=== PATIENT | female | born 1965 | race Caucasian/White ===

== ENCOUNTER 2019-02-25 18:02 | Emergency (ER) | payer MEDICAID ==
[2019-02-25 18:13] VITALS: BP 142/84; PULSE 86
[2019-02-25] MEDS ORDERED: Acetaminophen/oxyCODONE 325-5 MG Tab PO ONE (18:22)
--- NOTE | 2019-02-25 18:22 | EDM.PDOC ---
ED HPI GENERAL MEDICAL PROBLEM - General Chief Complaint: Chest Pain Stated Complaint: RT RIB PAIN Time Seen by Provider: 02/25/19 18:17 Source of Information: Reports: Patient, Family (spouse) History Limitations: Reports: Respiratory Distress - History of Present Illness INITIAL COMMENTS - FREE TEXT/NARRATIVE: 53-year-old female presents to the ED with severe right-sided mid axillary pain. She states she's been ill with a cough and cold for the last 10 days. She feels this is been slowly getting better. Sure appetite is returned. She did not have a high fever with illness. Everyone in the family seem to catch it however. She did have the body aches and mild headache suggestive of a mild form of influenza. She developed pleuritic right-sided chest pain last night which was worse this afternoon. This precipitated her to go to the walk-in clinic where she did have an x-ray done and was told that she had a mild patch of pneumonia right lower lobe and she was started on a Z-Ran. So given Mucinex to help clear secretions. Subsequently the pain has intensified 10 times worse and feels like when she had a pleural effusion on the right side. She states her cough is actually better than it was. Onset: Sudden Onset Date: 02/24/19 (First appreciated right sided mid axillary rib pain last evening which is progressively intensified over the last) Duration: Hour(s):, Getting Worse Location: Reports: Chest (8 midaxillary line tenderness particularly over ribs 8 and 9.) Quality: Reports: Sharp, Stabbing Severity: Severe (Is very sharp and stabbing eye pleuritic 10) Improves with: Reports: Rest Worsens with: Reports: Other, Movement Context: Reports: Other (Spontaneous occurrence after coughing for the last 10 days because of cough and cold symptoms.). Denies: Activity, Exercise, Lifting , Sick Contact, Trauma Associated Symptoms: Reports: Chest Pain (Right mid axillary chest pain which is strongly pleuritic.), Cough, cough w sputum, Shortness of Breath. 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.) Right Chest Pain Score (Numeric/FACES): 10 - Related Data Allergies Allergy/AdvReac Type Severity Reaction Status Date / Time No Known Allergies Allergy Verified 02/25/19 18:13 Home Meds: Home Meds Albuterol Sulfate [Proair Hfa] 1 puff INH DAILY 02/25/19 [History] Fluticasone/Vilanterol [Breo Ellipta 200-25 MCG Inhalation Kit] 1 puff INH DAILY 02/25/19 [History] oxyCODONE HCl/Acetaminophen [Percocet 5-325 mg Tablet] 1 - 2 each PO Q4H PRN # 24 tablet 02/25/19 [Rx] Past Medical History HEENT History: Reports: Impaired Vision Respiratory History: Reports: Asthma, Pneumonia, Recurrent, Other (See Below) Other Respiratory History: pulmonary effusion 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: Musculoskeletal History: Reports: Other (See Below) Other Musculoskeletal History: right leg fracture - Past Surgical History GI Surgical History: Reports: Appendectomy, Cholecystectomy Female Surgical History: Reports: Hysterectomy Other Female Surgeries/Procedures: Bladder uphold with pelvic mesh Other Endocrine Surgeries/Procedures: Removal of adrenal gland Social & Family History - Family History Family Medical History: Noncontributory - Tobacco Use Smoking Status *Q: Current Every Day Smoker Years of Tobacco use: 30 Packs/Tins Daily: 1 - Caffeine Use Caffeine Use: Reports: Coffee - Recreational Drug Use Recreational Drug Use: No - Living Situation & Occupation Living situation: Reports: Occupation: Employed ED ROS GENERAL - Review of Systems Review Of Systems: See Below Constitutional: Reports: Malaise, Weakness, Decreased Appetite. Denies: Fever, Chills, Fatigue, Weight Loss HEENT: Reports: No Symptoms (At this time but her appetite has been improving over the last week) Respiratory: Reports: Shortness of Breath, Pleuritic Chest Pain, Cough (Severe pleuritic chest pain right mid axillary line or particularly over ribs 8 and 9) . Denies: Wheezing Cardiovascular: Reports: Chest Pain ( off which she states is resolving with very minimal sputum production). Denies: Blood Pressure Problem ( pleuritic chest pain right mid axillary line. ), Claudication, Dyspnea on Exertion, Edema , Lightheadedness, Orthopnea, Palpitations Endocrine: Reports: Fatigue GI/Abdominal: Reports: No Symptoms : Reports: No Symptoms Musculoskeletal: Reports: No Symptoms Skin: Reports: No Symptoms Neurological: Reports: No Symptoms Psychiatric: Reports: No Symptoms ED EXAM, GENERAL - Physical Exam Exam: See Below Exam Limited By: No Limitations General Appearance: Alert, WD/WN, Moderate Distress, Other (Temperatures 36.8 heart rate is 86 and sinus respiratory rate is 22-24/m with O2 sats of only 94% on room air. BP is 142/84. She has received showing splinting respirations on the right side) Eye Exam: Bilateral Eye: Normal Inspection, PERRL Respiratory/Chest: Decreased Breath Sounds, Splinting (Blunting respirations on the right side), Other (Chest wall rashes identified to suggest shingles.). No : Normal Breath Sounds Cardiovascular: Normal Peripheral Pulses, Regular Rate, Rhythm, No Edema, No Gallop, No Murmur (He should is tender to palpation over ribs 7 and 8 and 9 in the midaxillary line. No subcutaneous emphysema or crepitus identified), No Rub GI/Abdominal: Normal Bowel Sounds, Soft, Non-Tender, No Organomegaly, No Mass, Pelvis Stable Back Exam: Normal Inspection, Full Range of Motion. No: CVA Tenderness (L), CVA Tenderness (R) Extremities: Normal Inspection, Normal Range of Motion, Non-Tender, No Pedal Edema Course - Vital Signs Last Recorded V/S: Last Vital Signs Temp 36.8 C 02/25/19 18:08 Pulse 86 02/25/19 18:08 Resp 22 H 02/25/19 18:08 BP 142/84 H 02/25/19 18:08 Pulse Ox 94 L 02/25/19 18:08 - Orders/Labs/Meds Orders: Active Orders 24 hr Category Date Time Status Peripheral IV Care [RC] . DIRECTED Care 02/25/19 18:25 Active Peripheral IV Insertion Adult [OM.PC] Stat Oth 02/25/19 18:25 Ordered Meds: Medications Discontinued Medications Generic Name Dose Route Start Last Admin Trade Name Jose PRN Reason Stop Dose Admin Iopamidol 100 ml 02/25/19 18:46 02/25/19 19:03 Isovue-370 (76%) IVPUSH 02/25/19 18:47 100 ml ONETIME ONE Administration Ketorolac Tromethamine 30 mg 02/25/19 19:30 Toradol IVPUSH ONETIME MONIKA Ondansetron HCl 4 mg 02/25/19 18:23 02/25/19 18:29 Zofran Odt PO 02/25/19 18:24 4 mg ONETIME ONE Administration Oxycodone/Acetaminophen 2 tab 02/25/19 18:22 02/25/19 18:28 Percocet 325-5 Mg PO 02/25/19 18:23 2 tab ONETIME ONE Administration Sodium Chloride 10 ml 02/25/19 18:24 02/25/19 19:03 Saline Flush FLUSH 10 ml ASDIRECTED PRN Administration Keep Vein Open - Radiology Interpretation Free Text/Narrative:: 43-year-old female presents to the ED with gradually worsening pleuritic chest pain on the right side. She reports that she's had a cough and cold for the last 10 days but felt that she was getting better. She had no real high fever and appetite is come back. She does have generalized myalgia and mild headache suggestive of a milder form of influenza such as parainfluenza. She at present has severe pleuritic chest pain on the right side and has severe splinting respirations. She has never had a pulmonary embolism and no DVD in the past. Attend the walk-in clinic today and had an x-ray done which was suggestive of a possible pneumonia right lower lobe. Abnormal way and partially of getting a hold of this x-ray as the clinic is now closed. Started on a Z-Ran and given Mucinex type cough syrup without any relief. She states that she was at the clinic the pain has intensified by over 10 times. She has severe splinting respirations and is unable take a full deep breath due to the severity of the pain. It seems to be very well localized to ribs 7 and 8 and 9 in the midaxillary line on the right side. No subcutaneous emphysema or crepitus identified. She reports she has had a previous pleural effusion on the right side for unknown reason. Since her O2 sats only 94 percent on room air decision made to CT her chest with IV contrast to make sure there is no pulmonary embolism or infarct. - Re-Assessments/Exams Free Text/Narrative Re-Assessment/Exam: 02/25/19 19:13 CT of the chest i.e. CT pulmonary angiogram is completed. Reveal any evidence of a pulmonary embolism. There is no sign of a pleural effusion or a pneumonia or infiltrate in the right lower lobe. The visualized ribs are completely normal on the right side as well with no obvious intercostal injuries it appears therefore that she has intercostal muscle spasm from coughing and has torn muscle in between the ribs. Note coincidental findings of the CDR low-density mass noted within the right adrenal gland so- called "coincidentalnoma" with a 4.2 centimeter mass in the right adrenal gland which is felt to represent an underlying adenoma. This is increased slightly in size from prior study which time it measured 3.2 cm in greatest dimension but is still felt to be benign given its negative Hounsfield unit measurements. Prior study showed a nodule within the right upper lobe of the lung which is not appreciated on this current study.. Treatment will be Percocet tabs 5/325 mg one or 2 every 4-6 hours for pain relief as needed which would also suppress her cough. Departure - Departure Time of Disposition: 19:35 Disposition: Home, Self-Care 01 Condition: Fair Clinical Impression: Acute chest wall pain, Pleurisy Intercostal muscle tear Qualifiers: Encounter type: initial encounter Qualified Code(s): S29.019A - Strain of muscle and tendon of unspecified wall of thorax, initial encounter - Discharge Information *PRESCRIPTION DRUG MONITORING PROGRAM REVIEWED*: Not Applicable *COPY OF PRESCRIPTION DRUG MONITORING REPORT IN PATIENT CARLIE: Not Applicable Prescriptions: oxyCODONE HCl/Acetaminophen [Percocet 5-325 mg Tablet] 1 - 2 each PO Q4H PRN # 24 tablet PRN Reason: pain relief. Instructions: Chest Wall Pain Referrals: Mike Abrams MD [Primary Care Provider] - Forms: ED Department Discharge Additional Instructions: Evaluation the emergency room today due to increasing sharp stabbing pleuritic chest pain on the right side. It seems to be localized very well to ribs #7,8 and 9 in the midaxillary line of your right chest wall. You have been suffering from a cough and cold for the last week which is slowly getting better however the cough is persisting . X-ray done at the clinic earlier today was suggestive of pneumonia were started on antibiotic Zithromax. Emanation in the ED revealed that your oxygen level was a little bit on the low side due to inability to take a deep breath due to splinting respirations on the right side. I could not appreciate any good air entry to the right lower lobe due to splinting. CT of the chest was therefore done with IV contrast to rule out any blood clots in the lungs or injury to the lung itself. The CT turned out to revealed no signs of blood clot in the lung and no pleural effusion or evidence of pneumonia. Appears that current chest pain is coming from a tear of the muscle between the ribs: Intercostal muscle tear from cough. Bones themselves are ribs are intact with no sign of fracture. Treatment is therefore pain relief. Percocet tablets 5/325 mg one or 2 every 4-6 hours needed for pain relief. Expect things to settle down or return to normal in about 7-10 days. Limit your exercise and work until the intercostal muscle tear heals. Just using a stool softer such as MiraLAX powder 17 g once daily to prevent constipation from the pain pills. Just use of Aleve 2 tablets every 8 hours also to alleviate pain and inflammation in the chest wall. Was given to to excuse her from the workplace for the next 6 days until chest wall pain settles down. Follow-up with personal care provider of any further problem's occur. Sepsis Event Note - Evaluation Sepsis Screening Result: No Definite Risk - Focused Exam Date Exam was Performed: 02/26/19 Time Exam was Performed: 07:15 - My Orders Last 24 Hours: My Active Orders 02/25/19 18:25 Peripheral IV Care [RC] . DIRECTED Peripheral IV Insertion Adult [OM.PC] Stat - Assessment/Plan Last 24 Hours: My Active Orders 02/25/19 18:25 Peripheral IV Care [RC] . DIRECTED Peripheral IV Insertion Adult [OM.PC] Stat
[2019-02-25] MEDS ORDERED: Ondansetron 4 MG Tab.DIS PO ONE (18:23)
[2019-02-25] MEDS: Sodium Chloride 0.9% 10 ML Syringe FLUSH PRN ×2 (18:43→19:03)
[2019-02-25] MEDS ORDERED: Iopamidol 755 Mg/ML 100 ML Bottle IVPUSH ONE (18:46)
--- NOTE | 2019-02-25 19:26 | CT ---
CT chest Technique: Multiple axial sections through the chest were obtained. Intravenous contrast was utilized. Study has been performed as a pulmonary angiogram protocol. Comparison: Prior chest CT study of 01/21/16. Findings: Pulmonary arteries are well opacified. No filling defects are seen to indicate pulmonary embolism. Coronary artery calcification appears to be present. Mild atherosclerotic calcification is noted within the thoracic aorta. No aneurysm is seen. Mediastinum and hilar region show no adenopathy. No axillary adenopathy is seen. Low density mass is noted within the right adrenal gland showing negative Hounsfield unit measurements measuring 4.2 cm which is felt to represent an adrenal adenoma. This has slightly increased in size from prior study at which time it measured about 3.2 cm in greatest dimension but is still felt to be benign given its negative Hounsfield unit measurements. Lungs are clear. Prior study showed a nodule within the right upper lung which is not appreciated on current study and most likely result from previous exam. No acute parenchymal change is appreciated. No pleural effusions are seen. Bone window settings were reviewed which shows no acute osseous finding. Impression: 1. No findings of pulmonary embolism. 2. Nothing acute is appreciated on CT study of chest. 3. Other findings believed to be incidental as noted above. Diagnostic code #2 This report was dictated in [place] Standard Time
[2019-02-25] MEDS ORDERED: Ketorolac 30 MG/ML SDV IVPUSH SCH (19:30)
== END 2019-02-25 19:34 | disposition home or self-care (01) ==
LOC: JD.ED 18:02
DX: S29.011A Strain of muscle and tendon of front wall of thorax, initial encounter (principal); R09.1 Pleurisy; F17.210 Nicotine dependence, cigarettes, uncomplicated; Z90.49 Acquired absence of other specified parts of digestive tract; Z90.710 Acquired absence of both cervix and uterus; X50.9XXA Other and unspecified overexertion or strenuous movements or postures, initial encounter
CPT/HCPCS: 71275; 99283; A9270; Q9967; 99284

== ENCOUNTER 2019-04-15 14:35 | Inpatient (IN) | payer MEDICAID ==
[2019-04-15] MEDS ORDERED: Ondansetron 4 MG/2 ML SDV IVPUSH ONE ×2 (15:01→15:18)
[2019-04-15] MEDS ORDERED: Oseltamivir 75 MG Cap PO ONE (15:02)
--- NOTE | 2019-04-15 15:11 | EDM.PDOC ---
ED HPI GENERAL MEDICAL PROBLEM - General Chief Complaint: Respiratory Problem Stated Complaint: RESPIRATORY ISSUES Time Seen by Provider: 04/15/19 14:50 Source of Information: Reports: Patient History Limitations: Reports: No Limitations - History of Present Illness INITIAL COMMENTS - FREE TEXT/NARRATIVE: 53-year-old female presents to the ED at the request of her primary care provider Dr. Mathis after she presented to the walk-in clinic this morning with fever chills a paroxysmal cough and significant hypoxia. She proved to be influenza A positive. Her illness started evening April 13. She woke Wednesday morning the with headache, body aches, paroxysmal cough. She has lost her appetite completely and has not eaten much at all for 2 days. She has had associated diarrhea and nausea and vomiting. Is weak dizzy and lightheaded when standing. O2 sats at the clinic were around 88% and improved with oxygen at 2 L to 92%. Patient quit smoking 16 days ago. She has a 36-pack -year history. She states her cough is nonproductive. Was sent to the ED due to low O2 sats. Onset: Sudden Onset Date: 04/13/19 (In the evening of , April 13 she developed fever and chills.) Duration: Day(s):, Getting Worse Location: Reports: Chest (Shortness of breath weakness and inability to eat.) Quality: Reports: Other (There paroxysmal cough and her ribs are hurting quite badly from coughing so hard.) Severity: Moderate Improves with: Reports: None Worsens with: Reports: Other Context: Denies: Activity (Exertion), Exercise, Lifting, Sick Contact, Trauma, Other Associated Symptoms: Reports: Chest Pain, Cough, Fever/Chills, Headaches, Loss of Appetite, Malaise, Nausea/Vomiting, Shortness of Breath, Other (Area stools) . Denies: No Other Symptoms, Confusion (Lower rib pain bilaterally from coughing so much.), cough w sputum (There paroxysmal nonproductive cough), Diaphoresis Treatments CHHA: Reports: Acetaminophen, NSAIDS - Related Data Allergies Allergy/AdvReac Type Severity Reaction Status Date / Time No Known Allergies Allergy Verified 04/15/19 14:43 Home Meds: Home Meds Albuterol Sulfate [Proair Hfa] 1 puff INH DAILY 02/25/19 [History] Fluticasone/Vilanterol [Breo Ellipta 200-25 MCG Inhalation Kit] 1 puff INH DAILY 02/25/19 [History] Meclizine [Antivert] 25 mg PO DAILY 04/15/19 [History] Ondansetron [Zofran ODT] 4 mg SL ASDIRECTED PRN 04/15/19 [History] Past Medical History HEENT History: Reports: Impaired Vision Respiratory History: Reports: Asthma, Pneumonia, Recurrent, Other (See Below) Other Respiratory History: pulmonary effusion [employer] History: Reports: Musculoskeletal History: Reports: Other (See Below) Other Musculoskeletal History: right leg fracture - Past Surgical History GI Surgical History: Reports: Appendectomy, Cholecystectomy Female Surgical History: Reports: Hysterectomy Other Female Surgeries/Procedures: Bladder uphold with pelvic mesh Other Endocrine Surgeries/Procedures: Removal of adrenal gland Social & Family History - Family History Family Medical History: Noncontributory - Tobacco Use Smoking Status *Q: Current Every Day Smoker Years of Tobacco use: 35 Packs/Tins Daily: 0.5 - Caffeine Use Caffeine Use: Reports: Coffee - Recreational Drug Use Recreational Drug Use: No - Living Situation & Occupation Living situation: Reports: Occupation: Employed ED ROS GENERAL - Review of Systems Review Of Systems: See Below Constitutional: Reports: Fever, Chills, Malaise, Weakness, Fatigue, Decreased Appetite, Weight Loss HEENT: Reports: Throat Pain Respiratory: Reports: Shortness of Breath, Wheezing, Cough. Denies: Pleuritic Chest Pain (Occasional wheezing), Sputum (Paroxysmal cough), Hemoptysis Cardiovascular: Reports: Chest Pain (Upper chest pain from coughing so much lower rib pain from coughing so much), Dyspnea on Exertion, Lightheadedness. Denies: Blood Pressure Problem, Claudication, Edema, Orthopnea Endocrine: Reports: Fatigue GI/Abdominal: Reports: Diarrhea, Decreased Appetite, Nausea (3 loose stools in the last 48 hours), Vomiting (, Did once last evening) : Reports: Incontinence (Stress incontinence from coughing so hard) Musculoskeletal: Reports: Muscle Pain Skin: Reports: No Symptoms (Generalized myalgia) Neurological: Reports: Dizziness (Especially with standing.), Weakness ( Generalized weakness) Psychiatric: Reports: No Symptoms Hematologic/Lymphatic: Reports: No Symptoms Immunologic: Reports: No Symptoms ED EXAM, GENERAL - Physical Exam Exam: See Below Exam Limited By: No Limitations General Appearance: Alert, WD/WN, Mild Distress, Other (She is feeling somewhat better after receiving albuterol treatment at the clinic. She feels she can release taken a deeper breath without coughing so hard. Vital signs show temperature of 38.2 pulse 105 and sinus respiratory of 16 BP 03/01/1976 O2 sats 87% on room air.) Eye Exam: Bilateral Eye: Normal Inspection (No scleral icterus or blepharal pallor.) Ears: Normal TMs Throat/Mouth: Normal Inspection, Normal Lips, Normal Oropharynx Head: Atraumatic, Normocephalic Neck: Normal Inspection, Supple, Non-Tender, Full Range of Motion. No: Lymphadenopathy (L), Lymphadenopathy (R) Respiratory/Chest: Lungs Clear, Normal Breath Sounds, No Accessory Muscle Use, Decreased Breath Sounds. No: Rales, Rhonchi, Wheezing Cardiovascular: Normal Peripheral Pulses (Sounds are mildly decreased at both bases by about 20%), No Edema, No Gallop (Tachycardia at rest 105/min), No Murmur, No Rub, Tachycardia Peripheral Pulses: 2+: Posterior Tibial (L), Posterior Tibial (R), Dorsalis Pedis (L), Dorsalis Pedis (R) GI/Abdominal: Normal Bowel Sounds, Soft, Non-Tender, No Organomegaly, No Mass, Pelvis Stable Back Exam: Normal Inspection, Full Range of Motion. No: CVA Tenderness (L), CVA Tenderness (R) Extremities: Normal Inspection, Normal Range of Motion, Non-Tender Neurological: Alert, Oriented, CN II-XII Intact, Normal Cognition, Normal Gait Psychiatric: Normal Affect, Normal Mood Skin Exam: Warm, Dry, Intact, Normal Color, No Rash EKG INTERPRETATION EKG Date: 04/15/19 Time: 15:29 Rhythm: NSR Rate (Beats/Min): 98 [place]: LAD-Left [place] Deviation (Minimal left axis deviation at -9 degrees) P-Wave: Present QRS: Other (RSR prime wave V1 normal variant. Initial poor R wave progression.) ST-T: Other (During baseline.) EKG Interpretation Comments: Borderline ECG Course - Vital Signs Last Recorded V/S: Last Vital Signs Temp 38.2 C H 04/15/19 14:40 Pulse 105 H 04/15/19 14:40 Resp 16 04/15/19 14:40 BP 115/77 04/15/19 14:40 Pulse Ox 95 04/15/19 15:45 - Orders/Labs/Meds Orders: Active Orders 24 hr Category Date Time Status EKG Documentation Completion [RC] STAT Care 04/15/19 15:04 Active Oxygen Therapy [RC] ASDIRECTED Care 04/15/19 15:04 Active Oxygen Therapy [RC] ASDIRECTED Care 04/15/19 15:27 Active MAGNESIUM [CHEM] AM Lab 04/16/19 05:11 Ordered MAGNESIUM [CHEM] AM Lab 04/17/19 05:11 Ordered MAGNESIUM [CHEM] AM Lab 04/18/19 05:11 Ordered PRO B-TYPE NATRIUR PEPT,BNPPRO [CHEM] Stat Lab 04/15/19 15:20 Received URINALYSIS W/MICROSCOPIC [UA W/MICROSCOPIC] [URIN] Stat Lab 04/15/19 15:05 Ordered Dextrose 5%-0.9% NaCl [Dextrose 5%-Normal Saline] 1,000 Med 04/15/19 15:15 Active ml IV ASDIRECTED Ketorolac [Toradol] Med 04/15/19 15:30 Active 30 mg IVPUSH ONETIME Medication Orders Dextrose/Sodium Chloride (Dextrose 5%-Normal Saline) 1,000 mls @ 500 mls/hr IV ASDIRECTED MONIKA Last Admin: 04/15/19 15:21 Dose: 500 mls/hr Ketorolac Tromethamine (Toradol) 30 mg IVPUSH ONETIME MONIKA Last Admin: 04/15/19 15:32 Dose: 30 mg Labs: Laboratory Tests 04/15/19 04/15/19 04/15/19 Range/Units 15:20 15:20 15:20 WBC 3.96 L (3.98-10.04) K/mm3 RBC 4.81 (3.98-5.22) M/mm3 Hgb 14.6 (11.2-15.7) gm/dl Hct 46.2 H (34.1-44.9) % MCV 96.0 H D (79.4-94.8) fl MCH 30.4 (25.6-32.2) pg MCHC 31.6 L (32.2-35.5) g/dl RDW Std Deviation 50.0 H (36.4-46.3) fL Plt Count 178 L (182-369) K/mm3 MPV 10.9 (9.4-12.3) fl Neut % (Auto) 67.6 (34.0-71.1) % Lymph % (Auto) 20.7 (19.3-51.7) % [place] % (Auto) 10.4 (4.7-12.5) % Eos % (Auto) 0 L (0.7-5.8) Baso % (Auto) 0.5 (0.1-1.2) % Neut # (Auto) 2.68 (1.56-6.13) K/mm3 Lymph # (Auto) 0.82 L (1.18-3.74) K/mm3 [facility] # (Auto) 0.41 H (0.24-0.36) K/mm3 Eos # (Auto) 0.00 L (0.04-0.36) K/mm3 Baso # (Auto) 0.02 (0.01-0.08) K/mm3 Sodium 136 (136-145) mEq/L Potassium 3.4 L (3.5-5.1) mEq/L Chloride 99 (98-107) mEq/L Carbon Dioxide 25 (21-32) mEq/L Anion Gap 15.4 H (5-15) BUN 12 (7-18) mg/dL Creatinine 0.8 (0.55-1.02) mg/dL Est Cr Clr Drug Dosing 57.74 mL/min Estimated GFR (MDRD) > 60 (>60) mL/min BUN/Creatinine Ratio 15.0 (14-18) Glucose 90 (74-106) mg/dL Lactic Acid 0.5 (0.4-2.0) mmol/L Calcium 8.6 (8.5-10.1) mg/dL Total Bilirubin 0.3 (0.2-1.0) mg/dL AST 28 (15-37) U/L ALT 39 (14-59) U/L Alkaline Phosphatase 70 (46-116) U/L C-Reactive Protein (<1.0) mg/dL Total Protein 7.0 (6.4-8.2) g/dl Albumin 3.2 L (3.4-5.0) g/dl Globulin 3.8 gm/dL Albumin/Globulin Ratio 0.8 L (1-2) Ketones (0.0-0.3) mM 04/15/19 04/15/19 Range/Units 15:20 15:20 WBC (3.98-10.04) K/mm3 RBC (3.98-5.22) M/mm3 Hgb (11.2-15.7) gm/dl Hct (34.1-44.9) % MCV (79.4-94.8) fl MCH (25.6-32.2) pg MCHC (32.2-35.5) g/dl RDW Std Deviation (36.4-46.3) fL Plt Count (182-369) K/mm3 MPV (9.4-12.3) fl Neut % (Auto) (34.0-71.1) % Lymph % (Auto) (19.3-51.7) % [place] % (Auto) (4.7-12.5) % Eos % (Auto) (0.7-5.8) Baso % (Auto) (0.1-1.2) % Neut # (Auto) (1.56-6.13) K/mm3 Lymph # (Auto) (1.18-3.74) K/mm3 [facility] # (Auto) (0.24-0.36) K/mm3 Eos # (Auto) (0.04-0.36) K/mm3 Baso # (Auto) (0.01-0.08) K/mm3 Sodium (136-145) mEq/L Potassium (3.5-5.1) mEq/L Chloride (98-107) mEq/L Carbon Dioxide (21-32) mEq/L Anion Gap (5-15) BUN (7-18) mg/dL Creatinine (0.55-1.02) mg/dL Est Cr Clr Drug Dosing mL/min Estimated GFR (MDRD) (>60) mL/min BUN/Creatinine Ratio (14-18) Glucose (74-106) mg/dL Lactic Acid (0.4-2.0) mmol/L Calcium (8.5-10.1) mg/dL Total Bilirubin (0.2-1.0) mg/dL AST (15-37) U/L ALT (14-59) U/L Alkaline Phosphatase (46-116) U/L C-Reactive Protein 4.4 H* (<1.0) mg/dL Total Protein (6.4-8.2) g/dl Albumin (3.4-5.0) g/dl Globulin gm/dL Albumin/Globulin Ratio (1-2) Ketones 0.76 (0.0-0.3) mM Meds: Medications Generic Name Dose Route Start Last Admin Trade Name Freq PRN Reason Stop Dose Admin Dextrose/Sodium Chloride 1,000 mls @ 500 mls/hr 04/15/19 15:15 04/15/19 15:21 Dextrose 5%-Normal Saline IV 500 mls/hr ASDIRECTED MONIKA Administration Ketorolac Tromethamine 30 mg 04/15/19 15:30 04/15/19 15:32 Toradol IVPUSH 30 mg ONETIME MONIKA Administration Discontinued Medications Generic Name Dose Route Start Last Admin Trade Name Freq PRN Reason Stop Dose Admin Acetaminophen 650 mg 04/15/19 15:17 04/15/19 15:31 Tylenol PO 04/15/19 15:18 650 mg ONETIME ONE Administration Hydromorphone HCl 0.5 mg 04/15/19 15:18 04/15/19 15:30 Dilaudid IVPUSH 04/15/19 15:19 0.5 mg ONETIME ONE Administration Ondansetron HCl 4 mg 04/15/19 15:01 04/15/19 15:21 Zofran IVPUSH 04/15/19 15:02 4 mg ONETIME ONE Administration Ondansetron HCl 4 mg 04/15/19 15:18 04/15/19 15:32 Zofran IVPUSH 04/15/19 15:19 Not Given ONETIME ONE Oseltamivir Phosphate 75 mg 04/15/19 15:02 04/15/19 15:21 Tamiflu PO 04/15/19 15:03 75 mg ONETIME ONE Administration - Radiology Interpretation Free Text/Narrative:: 53-year-old female presents to the ED due to hypoxemia identified at the walk- in clinic. She became acutely ill on evening late with fever and chills. The following morning or yesterday she awoke with fever chills headache and paroxysmal cough and loss of appetite. She is also had nausea and vomiting x3 and diarrhea stools x3. She tested positive for the influenza A virus. Chest x-ray was done at the clinic and sent to us for review. There is slight haziness in the left lower lobe but not enough to call and pneumonia. Cardiac silhouette is within normal limits. She used to smoke cigarettes and quit 16 days ago. She has a [id number]-olra history. She is not on home oxygen. O2 sats here were 87% off of oxygen. On oxygen at 2 L she is 93%. Pressure is 115/73. She has a headache and is febrile at present. Plan routine labs to be done. She will likely require admission to the hospital due to hypoxemia. Point to start her on Tamiflu 75mg immediately as she is just about at the 48- hour window. - Re-Assessments/Exams Free Text/Narrative Re-Assessment/Exam: 04/15/19 16:11 Hematology reveals a white count that is on the low side at 3.96. The differential reveals 67% neutrophils and 21% lymphocytes. Hemoglobin is 14.6 with a hematocrit of 46.2. MCV is mildly elevated at 96.0. Platelet count is normal 178,000. Her lactic acid was 0.5 serum ketones are elevated at 0.76 04/15/19 16:42 Sodium is 136 potassium low normal at 3.4. Chloride 99 with a bicarb of 25. Anion gap is 15.4. BUN was 12 with a creatinine of 0.8. GFR was greater than 60. Glucose is 90 with a lactic acid of 0.5 calcium was 8.6 liver function was normal. C-reactive protein is elevated at 4.4. Total protein is 7.0 albumin fraction was 3.2 . Departure - Departure Time of Disposition: 16:43 Disposition: Admitted As Inpatient 65 Condition: Fair Clinical Impression: Influenza A, Hypoxia, Metabolic acidosis, Ketosis, Hypokalemia COPD (chronic obstructive pulmonary disease) Qualifiers: COPD type: unspecified COPD Qualified Code(s): J44.9 - Chronic obstructive pulmonary disease, unspecified - Discharge Information *PRESCRIPTION DRUG MONITORING PROGRAM REVIEWED*: Not Applicable *COPY OF PRESCRIPTION DRUG MONITORING REPORT IN PATIENT CARLIE: Not Applicable Sepsis Event Note - Evaluation Sepsis Screening Result: Possible Sepsis Risk - Focused Exam Vital Signs: Vital Signs Temp Pulse Resp BP Pulse Ox Pulse Ox 04/15/19 15:45 95 04/15/19 15:32 95 04/15/19 14:49 95 04/15/19 14:40 38.2 C H 105 H 16 115/77 87 L Date Exam was Performed: 04/15/19 Time Exam was Performed: 16:42 - My Orders Last 24 Hours: My Active Orders 04/15/19 15:04 EKG Documentation Completion [RC] STAT Oxygen Therapy [RC] ASDIRECTED 04/15/19 15:05 URINALYSIS W/MICROSCOPIC [UA W/MICROSCOPIC] [URIN] Stat 04/15/19 15:15 Dextrose 5%-0.9% NaCl [Dextrose 5%-Normal Saline] 1,000 ml IV ASDIRECTED 04/15/19 15:20 PRO B-TYPE NATRIUR PEPT,BNPPRO [CHEM] Stat 04/15/19 15:27 Oxygen Therapy [RC] ASDIRECTED 04/15/19 15:30 Ketorolac [Toradol] 30 mg IVPUSH ONETIME 04/16/19 05:11 MAGNESIUM [CHEM] AM 04/17/19 05:11 MAGNESIUM [CHEM] AM 04/18/19 05:11 MAGNESIUM [CHEM] AM - Assessment/Plan Last 24 Hours: My Active Orders 04/15/19 15:04 EKG Documentation Completion [RC] STAT Oxygen Therapy [RC] ASDIRECTED 04/15/19 15:05 URINALYSIS W/MICROSCOPIC [UA W/MICROSCOPIC] [URIN] Stat 04/15/19 15:15 Dextrose 5%-0.9% NaCl [Dextrose 5%-Normal Saline] 1,000 ml IV ASDIRECTED 04/15/19 15:20 PRO B-TYPE NATRIUR PEPT,BNPPRO [CHEM] Stat 04/15/19 15:27 Oxygen Therapy [RC] ASDIRECTED 04/15/19 15:30 Ketorolac [Toradol] 30 mg IVPUSH ONETIME 04/16/19 05:11 MAGNESIUM [CHEM] AM 04/17/19 05:11 MAGNESIUM [CHEM] AM 04/18/19 05:11 MAGNESIUM [CHEM] AM
[2019-04-15] MEDS ORDERED: Dextrose 5%-0.9% NaCl 1,000 ML IV SCH (15:15)
[2019-04-15] MEDS ORDERED: Acetaminophen 325 MG Tab PO ONE (15:17)
[2019-04-15] MEDS ORDERED: HYDROmorphone 0.5 MG/0.5 ML Syringe IVPUSH ONE (15:18)
[2019-04-15] MEDS ORDERED: Ketorolac 30 MG/ML SDV IVPUSH SCH (15:30)
[2019-04-15] MEDS ORDERED: Albuterol 0.083% 2.5 MG/3 ML Neb Soln NEB PRN (17:41)
[2019-04-15] MEDS ORDERED: Ondansetron 4 MG/2 ML SDV IV PRN (17:42)
[2019-04-15] MEDS ORDERED: Ibuprofen 600 MG Tab PO PRN ×2 (17:42→21:30)
[2019-04-15] MEDS ORDERED: Acetaminophen/oxyCODONE 325-5 MG Tab PO PRN (17:42)
--- NOTE | 2019-04-15 17:55 | PCM.HP.2 ---
H&P History of Present Illness - General Date of Service: 04/15/19 Admit Problem/Dx: Admission Diagnosis/Problem Admission Diagnosis/Problem Influenza due to influenza A subtype H1N1 virus Source of Information: Patient - History of Present Illness Initial Comments - Free Text/Narative: Being seen by her primary care provider secondary to hypoxemia and positive influenza A. Patient has a history of asthma and states that on she started developing nausea, vomiting, diarrhea, and worsening cough. Patient became more short of breath and was seen by her primary care provider today. She had a positive influenza swab and was found to be hypoxemic. Chest x-ray was negative for infection. WBC was normal at 5. She required 2 L by nasal cannula and her oxygen saturations were still only 91 to 92%. Patient did stop smoking approximately 16 days ago. She has a [id number] history. She states that her chest feels tight and she has a nonproductive cough. No other significant medical history. Headache Pain Score (Numeric/FACES): 4 - Related Data Allergies/Adverse Reactions: Allergies Allergy/AdvReac Type Severity Reaction Status Date / Time No Known Allergies Allergy Verified 04/15/19 14:43 Home Medications: Home Meds Albuterol Sulfate [Proair Hfa] 1 puff INH DAILY 02/25/19 [History] Fluticasone/Vilanterol [Breo Ellipta 200-25 MCG Inhalation Kit] 1 puff INH DAILY 02/25/19 [History] Meclizine [Antivert] 25 mg PO DAILY 04/15/19 [History] Ondansetron [Zofran ODT] 4 mg SL ASDIRECTED PRN 04/15/19 [History] Past Medical History HEENT History: Reports: Impaired Vision Respiratory History: Reports: Asthma, Pneumonia, Recurrent, Other (See Below) Other Respiratory History: pulmonary effusion 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: Musculoskeletal History: Reports: Other (See Below) Other Musculoskeletal History: right leg fracture - Past Surgical History GI Surgical History: Reports: Appendectomy, Cholecystectomy Female Surgical History: Reports: Hysterectomy Other Female Surgeries/Procedures: Bladder uphold with pelvic mesh Other Endocrine Surgeries/Procedures: Removal of adrenal gland Social & Family History - Family History Family Medical History: Noncontributory - Tobacco Use Smoking Status *Q: Current Every Day Smoker Years of Tobacco use: 35 Packs/Tins Daily: 0.5 - Caffeine Use Caffeine Use: Reports: Coffee - Recreational Drug Use Recreational Drug Use: No - Living Situation & Occupation Living situation: Reports: Occupation: Employed H&P Review of Systems - Review of Systems: Review Of Systems: Comprehensive ROS is negative, except as noted in HPI. Exam - Exam Exam: See Below - Vital Signs Vital Signs: Last Vital Signs Temp 100.8 F H 04/15/19 14:40 Pulse 95 04/15/19 16:44 Resp 16 04/15/19 16:44 BP 115/63 04/15/19 16:44 Pulse Ox 96 04/15/19 16:44 Weight: 190 lb - Exam Quality Assessment: Supplemental Oxygen General: Alert, Oriented, 4 HEENT: Conjunctiva Clear, Hearing Intact, Mucosa Moist & [place] Neck: Supple, Trachea Midline, 2 Lungs: Decreased Breath Sounds, Wheezing. No: Rhonchi Cardiovascular: Regular Rate, Regular Rhythm GI/Abdominal Exam: Normal Bowel Sounds, Soft, Non-Tender, No Organomegaly, No Distention, No Abnormal Bruit, No Mass Extremities: Normal Inspection, Normal Range of Motion, Non-Tender, No Pedal Edema Skin: Warm, Dry, Intact Neuro Extensive - Mental Status: Alert, Oriented x3 Neuro Extensive - Motor, Sensory, Reflexes: CN II-XII Intact Psychiatric: Alert, Normal Affect, Normal Mood - Patient Data Lab Results Last 24 hrs: Laboratory Results - last 24 hr 04/15/19 04/15/19 04/15/19 Range/Units 15:20 15:20 15:20 WBC 3.96 L (3.98-10.04) K/mm3 RBC 4.81 (3.98-5.22) M/mm3 Hgb 14.6 (11.2-15.7) gm/dl Hct 46.2 H (34.1-44.9) % MCV 96.0 H D (79.4-94.8) fl MCH 30.4 (25.6-32.2) pg MCHC 31.6 L (32.2-35.5) g/dl RDW Std Deviation 50.0 H (36.4-46.3) fL Plt Count 178 L (182-369) K/mm3 MPV 10.9 (9.4-12.3) fl Neut % (Auto) 67.6 (34.0-71.1) % Lymph % (Auto) 20.7 (19.3-51.7) % [place] % (Auto) 10.4 (4.7-12.5) % Eos % (Auto) 0 L (0.7-5.8) Baso % (Auto) 0.5 (0.1-1.2) % Neut # (Auto) 2.68 (1.56-6.13) K/mm3 Lymph # (Auto) 0.82 L (1.18-3.74) K/mm3 [place] # (Auto) 0.41 H (0.24-0.36) K/mm3 Eos # (Auto) 0.00 L (0.04-0.36) K/mm3 Baso # (Auto) 0.02 (0.01-0.08) K/mm3 Sodium 136 (136-145) mEq/L Potassium 3.4 L (3.5-5.1) mEq/L Chloride 99 (98-107) mEq/L Carbon Dioxide 25 (21-32) mEq/L Anion Gap 15.4 H (5-15) BUN 12 (7-18) mg/dL Creatinine 0.8 (0.55-1.02) mg/dL Est Cr Clr Drug Dosing 57.74 mL/min Estimated GFR (MDRD) > 60 (>60) mL/min BUN/Creatinine Ratio 15.0 (14-18) Glucose 90 (74-106) mg/dL Lactic Acid 0.5 (0.4-2.0) mmol/L Calcium 8.6 (8.5-10.1) mg/dL Total Bilirubin 0.3 (0.2-1.0) mg/dL AST 28 (15-37) U/L ALT 39 (14-59) U/L Alkaline Phosphatase 70 (46-116) U/L C-Reactive Protein (<1.0) mg/dL NT-Pro-B Natriuret Pep (0-125) pg/mL Total Protein 7.0 (6.4-8.2) g/dl Albumin 3.2 L (3.4-5.0) g/dl Globulin 3.8 gm/dL Albumin/Globulin Ratio 0.8 L (1-2) Ketones (0.0-0.3) mM 04/15/19 04/15/19 04/15/19 Range/Units 15:20 15:20 15:20 WBC (3.98-10.04) K/mm3 RBC (3.98-5.22) M/mm3 Hgb (11.2-15.7) gm/dl Hct (34.1-44.9) % MCV (79.4-94.8) fl MCH (25.6-32.2) pg MCHC (32.2-35.5) g/dl RDW Std Deviation (36.4-46.3) fL Plt Count (182-369) K/mm3 MPV (9.4-12.3) fl Neut % (Auto) (34.0-71.1) % Lymph % (Auto) (19.3-51.7) % [place] % (Auto) (4.7-12.5) % Eos % (Auto) (0.7-5.8) Baso % (Auto) (0.1-1.2) % Neut # (Auto) (1.56-6.13) K/mm3 Lymph # (Auto) (1.18-3.74) K/mm3 [place] # (Auto) (0.24-0.36) K/mm3 Eos # (Auto) (0.04-0.36) K/mm3 Baso # (Auto) (0.01-0.08) K/mm3 Sodium (136-145) mEq/L Potassium (3.5-5.1) mEq/L Chloride (98-107) mEq/L Carbon Dioxide (21-32) mEq/L Anion Gap (5-15) BUN (7-18) mg/dL Creatinine (0.55-1.02) mg/dL Est Cr Clr Drug Dosing mL/min Estimated GFR (MDRD) (>60) mL/min BUN/Creatinine Ratio (14-18) Glucose (74-106) mg/dL Lactic Acid (0.4-2.0) mmol/L Calcium (8.5-10.1) mg/dL Total Bilirubin (0.2-1.0) mg/dL AST (15-37) U/L ALT (14-59) U/L Alkaline Phosphatase (46-116) U/L C-Reactive Protein 4.4 H* (<1.0) mg/dL NT-Pro-B Natriuret Pep 67 (0-125) pg/mL Total Protein (6.4-8.2) g/dl Albumin (3.4-5.0) g/dl Globulin gm/dL Albumin/Globulin Ratio (1-2) Ketones 0.76 (0.0-0.3) mM Result Diagrams: 04/15/19 15:20 04/15/19 15:20 EKG INTERPRETATION EKG Date: 04/15/19 Rhythm: NSR [place]: Normal QRS: Normal (SR prime) ST-T: Normal QT: Normal Comparison: NA - No Prior EKG Sepsis Event Note - Evaluation Sepsis Screening Result: No Definite Risk - Focused Exam Vital Signs: Vital Signs Temp Pulse Resp BP Pulse Ox Pulse Ox 04/15/19 16:44 95 16 115/63 96 04/15/19 15:45 95 04/15/19 15:32 95 04/15/19 14:49 95 04/15/19 14:40 100.8 F H 105 H 16 115/77 87 L Date Exam was Performed: 04/15/19 Time Exam was Performed: 17:49 Problem List Initiated/Reviewed/Updated: Yes Orders Last 24hrs: Active Orders 24 hr Category Date Time Status Admission Status [Patient Status] [ADT] Routine ADT 04/15/19 15:58 Active EKG Documentation Completion [RC] STAT Care 04/15/19 15:04 Active Oxygen Therapy [RC] ASDIRECTED Care 04/15/19 15:04 Active Oxygen Therapy [RC] ASDIRECTED Care 04/15/19 15:27 Active Oxygen Therapy [RC] PRN Care 04/15/19 17:42 Ordered RT Aerosol Therapy [RC] ASDIRECTED Care 04/15/19 17:41 Ordered RT Incentive Spirometry [RC] ASDIRECTED Care 04/15/19 17:44 Ordered Up ad Sara [RC] ASDIRECTED Care 04/15/19 17:42 Ordered VTE/DVT Education [RC] PER UNIT ROUTINE Care 04/15/19 17:42 Ordered Vital Signs [RC] Q4H Care 04/15/19 17:42 Ordered Regular Diet [DIET] Diet 04/15/19 Dinner Ordered CBC WITH AUTO DIFF [HEME] AM Lab 04/16/19 05:11 Ordered COMPREHENSIVE METABOLIC PN,CMP [CHEM] AM Lab 04/16/19 05:11 Ordered MAGNESIUM [CHEM] AM Lab 04/16/19 05:11 Ordered MAGNESIUM [CHEM] AM Lab 04/17/19 05:11 Ordered MAGNESIUM [CHEM] AM Lab 04/18/19 05:11 Ordered URINALYSIS W/MICROSCOPIC [UA W/MICROSCOPIC] [URIN] Stat Lab 04/15/19 15:05 Ordered Acetaminophen/oxyCODONE [Percocet 325-5 MG] Med 04/15/19 17:42 Ordered 1 tab PO Q4H PRN Albuterol [Proventil Neb Soln] Med 04/15/19 17:41 Ordered 2.5 mg NEB Q2H PRN Albuterol/Ipratropium [DuoNeb 3.0-0.5 MG/3 ML] Med 04/15/19 21:00 Ordered 3 ml NEB Q6HRRT Amoxicillin/Clavulanate K [Augmentin 875 MG/125 MG] Med 04/15/19 21:00 Ordered 1 tab PO Q12HR Dextrose 5%-0.9% NaCl [Dextrose 5%-Normal Saline] 1,000 Med 04/15/19 15:15 Active ml IV ASDIRECTED Enoxaparin [Lovenox] Med 04/16/19 09:00 Ordered 40 mg SUBCUT DAILY Ibuprofen [Motrin] Med 04/15/19 21:30 Active 600 mg PO Q6H PRN Ketorolac [Toradol] Med 04/15/19 15:30 Active 30 mg IVPUSH ONETIME Ondansetron [Zofran] Med 04/15/19 17:42 Ordered 4 mg IV Q4H PRN Oseltamivir [Tamiflu] Med 04/16/19 06:00 Ordered 75 mg PO Q12H methylPREDNISolone Sod Succ [Solu-MEDROL] Med 04/15/19 17:45 Ordered 40 mg IVPUSH Q6H Resuscitation Status Routine Resus Stat 04/15/19 17:42 Ordered Medication Orders Albuterol (Proventil Neb Soln) 2.5 mg NEB Q2H PRN PRN Reason: Shortness of Breath Albuterol/Ipratropium (Duoneb 3.0-0.5 Mg/3 Ml) 3 ml NEB Q6HRRT MONIKA Amoxicillin/Clavulanate Potassium (Augmentin 875 Mg/125 Mg) 1 tab PO Q12HR MONIKA Enoxaparin Sodium (Lovenox) 40 mg SUBCUT DAILY [facility] Dextrose/Sodium Chloride (Dextrose 5%-Normal Saline) 1,000 mls @ 500 mls/hr IV ASDIRECTED [facility] Last Admin: 04/15/19 15:21 Dose: 500 mls/hr Ibuprofen (Motrin) 600 mg PO Q6H PRN PRN Reason: Pain (moderate 4-6) Ketorolac Tromethamine (Toradol) 30 mg IVPUSH ONETIME [facility] Last Admin: 04/15/19 15:32 Dose: 30 mg Methylprednisolone Sodium Succinate (Solu-Medrol) 40 mg IVPUSH Q6H [facility] Ondansetron HCl (Zofran) 4 mg IV Q4H PRN PRN Reason: Nausea/Vomiting Oseltamivir Phosphate (Tamiflu) 75 mg PO Q12H [place]IK[place] Oxycodone/Acetaminophen (Percocet 325-5 Mg) 1 tab PO Q4H PRN PRN Reason: Pain (moderate 4-6) Assessment/Plan Comment:: Assessment * Influenza A * Patient seen at primary care provider today and was positive for influenza A on nasal swab * Symptoms started approximately 48 hours ago. * With given Tamiflu 75 mg in the emergency room * Elevated anion gap * Exacerbation of asthma likely some component of COPD with hypoxemia * Requiring 2 to 4 L nasal cannula * Albuterol nebulizer has not made much of a difference. * She does have significant wheezing on exam and decreased air movement. * Chest x-ray is negative for infiltrate. * Dry cough. * Hypovolemia with hypokalemia * Given 1 L D5 NS in the emergency room Plan * Admit to medical floor * FiO2 to keep SPO2 between 92 to 95% * Continue Tamiflu 75 mg twice daily * D5 normal saline with 20 of K at 75 mL an hour * Potassium chloride 40 mEq p.o. x1 * Solu-Medrol 40 mg every 6 hours * Augmentin 875 mg twice daily * DuoNeb every 6 hours * Albuterol every 2 hours as needed * Repeat CBC, CMP and mag in the morning * Regular diet as tolerated * Zofran for nausea * VTE prophylaxis with Lovenox * CODE STATUS: Full code * Anticipated length of stay 2 to 3 days - Mortality Measure Prognosis:: Good
[2019-04-15] MEDS ORDERED: Potassium Chloride 20 MEQ Tab.ER PO ONE (17:57)
[2019-04-15] MEDS ORDERED: Dextrose 5%-0.9% NaCl with KCl 1,000 ML IV SCH (18:00)
[2019-04-15] MEDS: methylPREDNISolone Sodium Succinate 40 MG/1 ML SDV IVPUSH SCH ×2 (18:06→23:26)
[2019-04-15] MEDS: Albuterol/Ipratropium 3.0-0.5 MG/3 ML Neb Soln NEB SCH (21:13)
[2019-04-15] MEDS: Amoxicillin/Clavulanate K 875-125 MG Tab PO SCH (22:23)
[2019-04-16] MEDS: Albuterol/Ipratropium 3.0-0.5 MG/3 ML Neb Soln NEB SCH ×4 (03:21→21:56)
[2019-04-16] MEDS: methylPREDNISolone Sodium Succinate 40 MG/1 ML SDV IVPUSH SCH ×5 (06:10→23:38)
[2019-04-16] MEDS: Oseltamivir 75 MG Cap PO SCH ×2 (06:10→18:13)
[2019-04-16] MEDS: Pantoprazole 40 MG Tab.CR PO SCH (06:11)
[2019-04-16] MEDS: Amoxicillin/Clavulanate K 875-125 MG Tab PO SCH ×2 (10:10→20:36)
[2019-04-16] MEDS: Enoxaparin 40 MG/0.4 ML Syringe SUBCUT SCH (10:10)
--- NOTE | 2019-04-16 14:11 | PCM.PN ---
- General Info Date of Service: 04/16/19 Admission Dx/Problem (Free Text): Admission Diagnosis/Problem Admission Diagnosis/Problem Influenza due to influenza A subtype H1N1 virus Subjective Update: Patient states that she is feeling much better. Less short of breath and more energy. She has been walking the halls. Continues on 3 to 4 L of O2 via nasal cannula Functional Status: Reports: Pain Controlled - Review of Systems General: Reports: No Symptoms HEENT: Reports: No Symptoms Pulmonary: Reports: Shortness of Breath, Cough Cardiovascular: Reports: No Symptoms Gastrointestinal: Reports: No Symptoms Musculoskeletal: Reports: No Symptoms - Patient Data Vitals - Most Recent: Last Vital Signs Temp 98.2 F 04/16/19 10:13 Pulse 73 04/16/19 10:13 Resp 24 H 04/16/19 10:13 BP 114/70 04/16/19 10:13 Pulse Ox 94 L 04/16/19 10:13 Weight - Most Recent: 200 lb 1.6 oz I&O - Last 24 Hours: Intake & Output 04/15/19 04/16/19 04/16/19 22:59 06:59 14:59 Intake Total 300 1400 60 Output Total 400 Balance 300 1000 60 Lab Results Last 24 Hours: Laboratory Results - last 24 hr 04/15/19 04/15/19 04/15/19 Range/Units 15:20 15:20 15:20 WBC 3.96 L (3.98-10.04) K/mm3 RBC 4.81 (3.98-5.22) M/mm3 Hgb 14.6 (11.2-15.7) gm/dl Hct 46.2 H (34.1-44.9) % MCV 96.0 H D (79.4-94.8) fl MCH 30.4 (25.6-32.2) pg MCHC 31.6 L (32.2-35.5) g/dl RDW Std Deviation 50.0 H (36.4-46.3) fL Plt Count 178 L (182-369) K/mm3 MPV 10.9 (9.4-12.3) fl Neut % (Auto) 67.6 (34.0-71.1) % Lymph % (Auto) 20.7 (19.3-51.7) % [place] % (Auto) 10.4 (4.7-12.5) % Eos % (Auto) 0 L (0.7-5.8) Baso % (Auto) 0.5 (0.1-1.2) % Neut # (Auto) 2.68 (1.56-6.13) K/mm3 Lymph # (Auto) 0.82 L (1.18-3.74) K/mm3 [place] # (Auto) 0.41 H (0.24-0.36) K/mm3 Eos # (Auto) 0.00 L (0.04-0.36) K/mm3 Baso # (Auto) 0.02 (0.01-0.08) K/mm3 Manual Slide Review Sodium 136 (136-145) mEq/L Potassium 3.4 L (3.5-5.1) mEq/L Chloride 99 (98-107) mEq/L Carbon Dioxide 25 (21-32) mEq/L Anion Gap 15.4 H (5-15) BUN 12 (7-18) mg/dL Creatinine 0.8 (0.55-1.02) mg/dL Est Cr Clr Drug Dosing 57.74 mL/min Estimated GFR (MDRD) > 60 (>60) mL/min BUN/Creatinine Ratio 15.0 (14-18) Glucose 90 (74-106) mg/dL Lactic Acid 0.5 (0.4-2.0) mmol/L Calcium 8.6 (8.5-10.1) mg/dL Magnesium (1.8-2.4) mg/dl Total Bilirubin 0.3 (0.2-1.0) mg/dL AST 28 (15-37) U/L ALT 39 (14-59) U/L Alkaline Phosphatase 70 (46-116) U/L C-Reactive Protein (<1.0) mg/dL NT-Pro-B Natriuret Pep (0-125) pg/mL Total Protein 7.0 (6.4-8.2) g/dl Albumin 3.2 L (3.4-5.0) g/dl Globulin 3.8 gm/dL Albumin/Globulin Ratio 0.8 L (1-2) Urine Color (Yellow) Urine Appearance (Clear) Urine pH (5.0-8.0) Ur Specific [place] (1.005-1.030) Urine Protein (Negative) Urine Glucose (UA) (Negative) Urine Ketones (Negative) Urine Occult Blood (Negative) Urine Nitrite (Negative) Urine Bilirubin (Negative) Urine Urobilinogen (0.2-1.0) Ur Leukocyte Esterase (Negative) U Hyaline Cast (Auto) (0-5) /lpf Urine RBC (0-5) /hpf Urine WBC (0-5) /hpf Ur Squamous Epith Cells (0-5) /hpf Urine Bacteria (FEW) /hpf Urine Mucus (FEW) /hpf Ketones (0.0-0.3) mM 04/15/19 04/15/19 04/15/19 Range/Units 15:20 15:20 15:20 WBC (3.98-10.04) K/mm3 RBC (3.98-5.22) M/mm3 Hgb (11.2-15.7) gm/dl Hct (34.1-44.9) % MCV (79.4-94.8) fl MCH (25.6-32.2) pg MCHC (32.2-35.5) g/dl RDW Std Deviation (36.4-46.3) fL Plt Count (182-369) K/mm3 MPV (9.4-12.3) fl Neut % (Auto) (34.0-71.1) % Lymph % (Auto) (19.3-51.7) % [place] % (Auto) (4.7-12.5) % Eos % (Auto) (0.7-5.8) Baso % (Auto) (0.1-1.2) % Neut # (Auto) (1.56-6.13) K/mm3 Lymph # (Auto) (1.18-3.74) K/mm3 [place] # (Auto) (0.24-0.36) K/mm3 Eos # (Auto) (0.04-0.36) K/mm3 Baso # (Auto) (0.01-0.08) K/mm3 Manual Slide Review Sodium (136-145) mEq/L Potassium (3.5-5.1) mEq/L Chloride (98-107) mEq/L Carbon Dioxide (21-32) mEq/L Anion Gap (5-15) BUN (7-18) mg/dL Creatinine (0.55-1.02) mg/dL Est Cr Clr Drug Dosing mL/min Estimated GFR (MDRD) (>60) mL/min BUN/Creatinine Ratio (14-18) Glucose (74-106) mg/dL Lactic Acid (0.4-2.0) mmol/L Calcium (8.5-10.1) mg/dL Magnesium (1.8-2.4) mg/dl Total Bilirubin (0.2-1.0) mg/dL AST (15-37) U/L ALT (14-59) U/L Alkaline Phosphatase (46-116) U/L C-Reactive Protein 4.4 H* (<1.0) mg/dL NT-Pro-B Natriuret Pep 67 (0-125) pg/mL Total Protein (6.4-8.2) g/dl Albumin (3.4-5.0) g/dl Globulin gm/dL Albumin/Globulin Ratio (1-2) Urine Color (Yellow) Urine Appearance (Clear) Urine pH (5.0-8.0) Ur Specific [place] (1.005-1.030) Urine Protein (Negative) Urine Glucose (UA) (Negative) Urine Ketones (Negative) Urine Occult Blood (Negative) Urine Nitrite (Negative) Urine Bilirubin (Negative) Urine Urobilinogen (0.2-1.0) Ur Leukocyte Esterase (Negative) U Hyaline Cast (Auto) (0-5) /lpf Urine RBC (0-5) /hpf Urine WBC (0-5) /hpf Ur Squamous Epith Cells (0-5) /hpf Urine Bacteria (FEW) /hpf Urine Mucus (FEW) /hpf Ketones 0.76 (0.0-0.3) mM 04/15/19 04/16/19 04/16/19 Range/Units 22:02 06:41 06:41 WBC 2.43 L* (3.98-10.04) K/mm3 RBC 4.77 (3.98-5.22) M/mm3 Hgb 14.3 (11.2-15.7) gm/dl Hct 46.4 H (34.1-44.9) % MCV 97.3 H (79.4-94.8) fl MCH 30.0 (25.6-32.2) pg MCHC 30.8 L (32.2-35.5) g/dl RDW Std Deviation 50.5 H (36.4-46.3) fL Plt Count 180 L (182-369) K/mm3 MPV 11.0 (9.4-12.3) fl Neut % (Auto) 77.0 H (34.0-71.1) % Lymph % (Auto) 19.3 (19.3-51.7) % [place] % (Auto) 2.9 L (4.7-12.5) % Eos % (Auto) 0 L (0.7-5.8) Baso % (Auto) 0.4 (0.1-1.2) % Neut # (Auto) 1.87 (1.56-6.13) K/mm3 Lymph # (Auto) 0.47 L (1.18-3.74) K/mm3 [place] # (Auto) 0.07 L (0.24-0.36) K/mm3 Eos # (Auto) 0.00 L (0.04-0.36) K/mm3 Baso # (Auto) 0.01 (0.01-0.08) K/mm3 Manual Slide Review Abnormal smear Sodium 138 (136-145) mEq/L Potassium 4.7 (3.5-5.1) mEq/L Chloride 105 (98-107) mEq/L Carbon Dioxide 25 (21-32) mEq/L Anion Gap 12.7 (5-15) BUN 13 (7-18) mg/dL Creatinine 0.6 (0.55-1.02) mg/dL Est Cr Clr Drug Dosing 76.99 mL/min Estimated GFR (MDRD) > 60 (>60) mL/min BUN/Creatinine Ratio 21.7 H (14-18) Glucose 169 H (74-106) mg/dL Lactic Acid (0.4-2.0) mmol/L Calcium 8.4 L (8.5-10.1) mg/dL Magnesium 2.0 (1.8-2.4) mg/dl Total Bilirubin 0.2 (0.2-1.0) mg/dL AST 22 (15-37) U/L ALT 30 (14-59) U/L Alkaline Phosphatase 63 (46-116) U/L C-Reactive Protein (<1.0) mg/dL NT-Pro-B Natriuret Pep (0-125) pg/mL Total Protein 6.3 L (6.4-8.2) g/dl Albumin 2.8 L (3.4-5.0) g/dl Globulin 3.5 gm/dL Albumin/Globulin Ratio 0.8 L (1-2) Urine Color Yellow (Yellow) Urine Appearance Clear (Clear) Urine pH 6.0 (5.0-8.0) Ur Specific [place] 1.025 (1.005-1.030) Urine Protein Negative (Negative) Urine Glucose (UA) Negative (Negative) Urine Ketones Negative (Negative) Urine Occult Blood Negative (Negative) Urine Nitrite Negative (Negative) Urine Bilirubin Negative (Negative) Urine Urobilinogen 0.2 (0.2-1.0) Ur Leukocyte Esterase Trace H (Negative) U Hyaline Cast (Auto) 5-10 H (0-5) /lpf Urine RBC 0-5 (0-5) /hpf Urine WBC 5-10 H (0-5) /hpf Ur Squamous Epith Cells 0-5 (0-5) /hpf Urine Bacteria Moderate H (FEW) /hpf Urine Mucus Moderate H (FEW) /hpf Ketones (0.0-0.3) mM Med Orders - Current: Current Medications Albuterol (Proventil Neb Soln) 2.5 mg NEB Q2H PRN PRN Reason: Shortness of Breath Albuterol/Ipratropium (Duoneb 3.0-0.5 Mg/3 Ml) 3 ml NEB Q6HRRT [facility] Last Admin: 04/16/19 09:02 Dose: 3 ml Amoxicillin/Clavulanate Potassium (Augmentin 875 Mg/125 Mg) 1 tab PO Q12HR [facility] Last Admin: 04/16/19 10:10 Dose: 1 tab Enoxaparin Sodium (Lovenox) 40 mg SUBCUT DAILY [facility] Last Admin: 04/16/19 10:10 Dose: 40 mg Ibuprofen (Motrin) 600 mg PO Q6H PRN PRN Reason: Pain (moderate 4-6) Methylprednisolone Sodium Succinate (Solu-Medrol) 40 mg IVPUSH Q6H [facility] Last Admin: 04/16/19 10:33 Dose: 40 mg Ondansetron HCl (Zofran) 4 mg IV Q4H PRN PRN Reason: Nausea/Vomiting Oseltamivir Phosphate (Tamiflu) 75 mg PO Q12H [facility] Last Admin: 04/16/19 06:10 Dose: 75 mg Oxycodone/Acetaminophen (Percocet 325-5 Mg) 1 tab PO Q4H PRN PRN Reason: Pain (moderate 4-6) Pantoprazole Sodium (Protonix) 40 mg PO DAILY@0700 [facility] Last Admin: 04/16/19 06:11 Dose: 40 mg Discontinued Medications Acetaminophen (Tylenol) 650 mg PO ONETIME ONE Stop: 04/15/19 15:18 Last Admin: 04/15/19 15:31 Dose: 650 mg Hydromorphone HCl (Dilaudid) 0.5 mg IVPUSH ONETIME ONE Stop: 04/15/19 15:19 Last Admin: 04/15/19 15:30 Dose: 0.5 mg Dextrose/Sodium Chloride (Dextrose 5%-Normal Saline) 1,000 mls @ 500 [facility]ls[facility] Admin: 04/15/19 15:21 Dose: 500 mls/hr Potassium Chloride/Dextrose/Sod Cl (D5 Ns With 20 Meq Kcl) 1,000 mls @ 75 mls[facility] Last Admin: 04/15/19 18:09 Dose: 75 mls/hr Ibuprofen (Motrin) 600 mg PO Q6H PRN PRN Reason: Pain (moderate 4-6) Ketorolac Tromethamine (Toradol) 30 mg IVPUSH ONETIME [facility] Last Admin: 04/15/19 15:32 Dose: 30 mg Ondansetron HCl (Zofran) 4 mg IVPUSH ONETIME ONE Stop: 04/15/19 15:02 Last Admin: 04/15/19 15:21 Dose: 4 mg Ondansetron HCl (Zofran) 4 mg IVPUSH ONETIME ONE Stop: 04/15/19 15:19 Last Admin: 04/15/19 15:32 Dose: Not Given Oseltamivir Phosphate (Tamiflu) 75 mg PO ONETIME ONE Stop: 04/15/19 15:03 Last Admin: 04/15/19 15:21 Dose: 75 mg Potassium Chloride (Klor-Con M20) 40 meq PO ONETIME ONE Stop: 04/15/19 17:58 Last Admin: 04/15/19 18:07 Dose: 40 meq - Exam Quality Assessment: Supplemental Oxygen General: Alert, Oriented HEENT: Pupils Equal, Mucous Membr. Moist/[place] Neck: Supple Lungs: Normal Respiratory Effort, Wheezing (Improved) Cardiovascular: Regular Rate, Regular Rhythm GI/Abdominal Exam: Normal Bowel Sounds, Soft, Non-Tender, No Distention Extremities: Normal Inspection, Normal Range of Motion, Non-Tender, No Pedal Edema Skin: Warm, Dry, Intact Psy/Mental Status: Alert, Normal Affect, Normal Mood Sepsis Event Note - Evaluation Sepsis Screening Result: Sepsis Risk - Focused Exam Vital Signs: Vital Signs Temp Pulse Resp BP Pulse Ox Pulse Ox 04/16/19 10:13 98.2 F 73 24 H 114/70 94 L 04/16/19 09:04 98 04/16/19 03:26 98.2 F 67 16 121/89 99 04/16/19 03:21 93 L Date Exam was Performed: 04/16/19 Time Exam was Performed: 14:06 - Problem List Review Problem List Initiated/Reviewed/Updated: Yes - My Orders Last 24 Hours: My Active Orders 04/15/19 17:41 RT Aerosol Therapy [RC] .PRN Albuterol [Proventil Neb Soln] 2.5 mg NEB Q2H PRN 04/15/19 17:42 Oxygen Therapy [RC] PRN Up ad Sara [RC] DAILY VTE/DVT Education [RC] BID Vital Signs [RC] 00,04,08,12,16,20 Acetaminophen/oxyCODONE [Percocet 325-5 MG] 1 tab PO Q4H PRN Ondansetron [Zofran] 4 mg IV Q4H PRN Resuscitation Status Routine 04/15/19 17:44 RT Incentive Spirometry [RC] DAILY 04/15/19 17:45 methylPREDNISolone Sod Succ [Solu-MEDROL] 40 mg IVPUSH Q6H 04/15/19 21:00 Albuterol/Ipratropium [DuoNeb 3.0-0.5 MG/3 ML] 3 ml NEB Q6HRRT Amoxicillin/Clavulanate K [Augmentin 875 MG/125 MG] 1 tab PO Q12HR 04/15/19 21:30 Ibuprofen [Motrin] 600 mg PO Q6H PRN 04/15/19 Dinner Regular Diet [DIET] 04/16/19 06:00 Oseltamivir [Tamiflu] 75 mg PO Q12H 04/16/19 07:00 Pantoprazole [ProTONIX] 40 mg PO DAILY@0700 04/16/19 09:00 Enoxaparin [Lovenox] 40 mg SUBCUT DAILY 04/16/19 13:08 Patient Status [ADT] Routine - Plan Plan:: Assessment * Influenza A * Patient seen at primary care provider today and was positive for influenza A on nasal swab * Symptoms started approximately 48 hours prior to admission * Tamiflu 75 mg q12h * Elevated anion gap * Exacerbation of asthma likely some component of COPD with hypoxemia - improving * Requiring 2 to 4 L nasal cannula * Duoneb q6 hours * Improved exam * Chest x-ray is negative for infiltrate. * Dry cough. * Hypovolemia with hypokalemia * K+ 4.7 Plan * Admit to medical floor * FiO2 to keep SPO2 between 92 to 95% * Continue Tamiflu 75 mg twice daily * Solu-Medrol 40 mg every 6 hours * Augmentin 875 mg twice daily * DuoNeb every 6 hours * Albuterol every 2 hours as needed * Repeat CBC, CMP and mag in the morning * Regular diet as tolerated * Zofran for nausea * VTE prophylaxis with Lovenox * CODE STATUS: Full code * Anticipated length of stay 2 to 3 days
[2019-04-17] MEDS: Albuterol/Ipratropium 3.0-0.5 MG/3 ML Neb Soln NEB SCH ×2 (03:20→08:08)
[2019-04-17] MEDS: methylPREDNISolone Sodium Succinate 40 MG/1 ML SDV IVPUSH SCH (06:29)
[2019-04-17] MEDS: Pantoprazole 40 MG Tab.CR PO SCH (06:29)
[2019-04-17] MEDS: Oseltamivir 75 MG Cap PO SCH (06:29)
[2019-04-17] MEDS: Amoxicillin/Clavulanate K 875-125 MG Tab PO SCH (09:04)
[2019-04-17] MEDS: Enoxaparin 40 MG/0.4 ML Syringe SUBCUT SCH (09:04)
[2019-04-17 09:05] VITALS: BP 114/61
--- NOTE | 2019-04-17 09:44 | PCM.DCSUM1 ---
Discharge Summary - Hospital Course HPI Initial Comments: Being seen by her primary care provider secondary to hypoxemia and positive influenza A. Patient has a history of asthma and states that on she started developing nausea, vomiting, diarrhea, and worsening cough. Patient became more short of breath and was seen by her primary care provider today. She had a positive influenza swab and was found to be hypoxemic. Chest x-ray was negative for infection. WBC was normal at 5. She required 2 L by nasal cannula and her oxygen saturations were still only 91 to 92%. Patient did stop smoking approximately 16 days ago. She has a [id number] history. She states that her chest feels tight and she has a nonproductive cough. No other significant medical history. Diagnosis: Stroke: No - Discharge Data Discharge Date: 04/17/19 Discharge Disposition: Home, Self-Care 01 Condition: Stable - Referral to Home Health Primary Care Physician: PCP Not In Area - Patient Summary/Data Hospital Course: Patient was admitted with influenza A and exacerbation of COPD with hypoxemia. She was placed on Tamiflu, started on IV steroids, duo nebs, Augmentin and albuterol. She had uneventful hospital course and was weaned off of O2 within 48 hours. - Patient Instructions Diet: Usual Diet as Tolerated Driving: May Drive Today Showering/Bathing: May Shower Other/Special Instructions: Follow up with PCP in 1 - 2 weeks. - Discharge Plan *PRESCRIPTION DRUG MONITORING PROGRAM REVIEWED*: Not Applicable *COPY OF PRESCRIPTION DRUG MONITORING REPORT IN PATIENT CARLIE: Not Applicable Prescriptions/Med Rec: Amoxicillin/Clavulanate K [Augmentin 875-125 MG] 1 tab PO Q12HR #6 tablet Oseltamivir [Tamiflu] 75 mg PO Q12H #5 cap predniSONE [Prednisone] 50 mg PO DAILY #2 tablet Home Medications: Home Meds Albuterol Sulfate [Proair Hfa] 1 puff INH DAILY 02/25/19 [History] Fluticasone/Salmeterol [Advair 100-50] 1 puff INH BID 04/15/19 [History] Meclizine [Antivert] 25 mg PO DAILY 04/15/19 [History] Omeprazole 20 mg PO DAILY 04/15/19 [History] Ondansetron [Zofran ODT] 4 mg SL ASDIRECTED PRN 04/15/19 [History] Amoxicillin/Clavulanate K [Augmentin 875-125 MG] 1 tab PO Q12HR #6 tablet [Rx] Oseltamivir [Tamiflu] 75 mg PO Q12H #5 cap 04/17/19 [Rx] predniSONE [Prednisone] 50 mg PO DAILY #2 tablet 04/17/19 [Rx] Oxygen Therapy Mode: Room Air Patient Handouts: Chronic Obstructive Pulmonary Disease Exacerbation, H1N1 Influenza, Steps to Quit Smoking Referrals: Debbie Wilkins MD [Ordering Only Provider] - 04/21/19 4:15 pm (Please follow up with Dr. Wilkins on April 20 at 4:15pm.) - Discharge Summary/Plan Comment DC Time >30 min.: Yes Discharge Summary/Plan Comment: Follow-up with primary care provider in 1 to 2 weeks. - General Info Date of Service: 04/17/19 Admission Dx/Problem (Free Text: Admission Diagnosis/Problem Admission Diagnosis/Problem Influenza due to influenza A subtype H1N1 virus Subjective Update: She is feeling much better today. She is off of O2. No shortness of breath. - Review of Systems General: Reports: No Symptoms HEENT: Reports: No Symptoms Pulmonary: Reports: No Symptoms Cardiovascular: Reports: No Symptoms Gastrointestinal: Reports: No Symptoms Musculoskeletal: Reports: No Symptoms Skin: Reports: No Symptoms - Patient Data Vitals - Most Recent: Last Vital Signs Temp 97.9 F 04/17/19 09:03 Pulse 79 04/17/19 09:03 Resp 14 04/17/19 09:03 BP 114/61 04/17/19 09:03 Pulse Ox 91 L 04/17/19 09:03 Weight - Most Recent: 200 lb 14.4 oz I&O - Last 24 hours: Intake & Output 04/16/19 04/17/19 04/17/19 22:59 06:59 14:59 Intake Total 880 500 120 Output Total 800 1300 Balance 80 -800 120 Lab Results - Last 24 hrs: Laboratory Results - last 24 hr 04/17/19 Range/Units 06:15 WBC 10.69 H (3.98-10.04) K/mm3 RBC 4.68 (3.98-5.22) M/mm3 Hgb 14.2 (11.2-15.7) gm/dl Hct 45.5 H (34.1-44.9) % MCV 97.2 H (79.4-94.8) fl MCH 30.3 (25.6-32.2) pg MCHC 31.2 L (32.2-35.5) g/dl RDW Std Deviation 50.8 H (36.4-46.3) fL Plt Count 189 (182-369) K/mm3 MPV 11.3 (9.4-12.3) fl Neut % (Auto) 88.4 H (34.0-71.1) % Lymph % (Auto) 8.4 L (19.3-51.7) % [place] % (Auto) 2.7 L (4.7-12.5) % Eos % (Auto) 0 L (0.7-5.8) Baso % (Auto) 0.2 (0.1-1.2) % Neut # (Auto) 9.45 H (1.56-6.13) K/mm3 Lymph # (Auto) 0.90 L (1.18-3.74) K/mm3 [place] # (Auto) 0.29 (0.24-0.36) K/mm3 Eos # (Auto) 0.00 L (0.04-0.36) K/mm3 Baso # (Auto) 0.02 (0.01-0.08) K/mm3 Manual Slide Review Normal smear Med Orders - Current: Current Medications Albuterol (Proventil Neb Soln) 2.5 mg NEB Q2H PRN PRN Reason: Shortness of Breath Albuterol/Ipratropium (Duoneb 3.0-0.5 Mg/3 Ml) 3 ml NEB Q6HRRT [facility] Last Admin: 04/17/19 08:08 Dose: 3 ml Amoxicillin/Clavulanate Potassium (Augmentin 875 Mg/125 Mg) 1 tab PO Q12HR [facility] Last Admin: 04/17/19 09:04 Dose: 1 tab Enoxaparin Sodium (Lovenox) 40 mg SUBCUT DAILY [facility] Last Admin: 04/17/19 09:04 Dose: 40 mg Ibuprofen (Motrin) 600 mg PO Q6H PRN PRN Reason: Pain (moderate 4-6) Methylprednisolone Sodium Succinate (Solu-Medrol) 40 mg IVPUSH Q6H [facility] Last Admin: 04/17/19 06:29 Dose: 40 mg Ondansetron HCl (Zofran) 4 mg IV Q4H PRN PRN Reason: Nausea/Vomiting Oseltamivir Phosphate (Tamiflu) 75 mg PO Q12H [facility] Last Admin: 04/17/19 06:29 Dose: 75 mg Oxycodone/Acetaminophen (Percocet 325-5 Mg) 1 tab PO Q4H PRN PRN Reason: Pain (moderate 4-6) Pantoprazole Sodium (Protonix) 40 mg PO DAILY@0700 [facility] Last Admin: 04/17/19 06:29 Dose: 40 mg Discontinued Medications Acetaminophen (Tylenol) 650 mg PO ONETIME ONE Stop: 04/15/19 15:18 Last Admin: 04/15/19 15:31 Dose: 650 mg Hydromorphone HCl (Dilaudid) 0.5 mg IVPUSH ONETIME ONE Stop: 04/15/19 15:19 Last Admin: 04/15/19 15:30 Dose: 0.5 mg Dextrose/Sodium Chloride (Dextrose 5%-Normal Saline) 1,000 mls @ 500 [facility]ls[facility] Admin: 04/15/19 15:21 Dose: 500 mls/hr Potassium Chloride/Dextrose/Sod Cl (D5 Ns With 20 Meq Kcl) 1,000 mls @ 75 mls/ hr IV ASDIRECTED [facility] Last Admin: 04/15/19 18:09 Dose: 75 mls/hr Ibuprofen (Motrin) 600 mg PO Q6H PRN PRN Reason: Pain (moderate 4-6) Ketorolac Tromethamine (Toradol) 30 mg IVPUSH ONETIME [facility] Last Admin: 04/15/19 15:32 Dose: 30 mg Ondansetron HCl (Zofran) 4 mg IVPUSH ONETIME ONE Stop: 04/15/19 15:02 Last Admin: 04/15/19 15:21 Dose: 4 mg Ondansetron HCl (Zofran) 4 mg IVPUSH ONETIME ONE Stop: 04/15/19 15:19 Last Admin: 04/15/19 15:32 Dose: Not Given Oseltamivir Phosphate (Tamiflu) 75 mg PO ONETIME ONE Stop: 04/15/19 15:03 Last Admin: 04/15/19 15:21 Dose: 75 mg Potassium Chloride (Klor-Con M20) 40 meq PO ONETIME ONE Stop: 04/15/19 17:58 Last Admin: 04/15/19 18:07 Dose: 40 meq - Exam General: Reports: Alert, Oriented HEENT: Reports: Pupils Equal, Mucous Membr. Moist/[place] Neck: Reports: Supple Lungs: Reports: Clear to Auscultation, Normal Respiratory Effort Cardiovascular: Reports: Regular Rate, Regular Rhythm GI/Abdominal Exam: Normal Bowel Sounds, Soft, Non-Tender, No Distention Extremities: Normal Inspection, Normal Range of Motion, Non-Tender, No Pedal Edema Skin: Reports: Warm, Dry, Intact Psy/Mental Status: Reports: Alert, Normal Affect, Normal Mood
[2019-04-17 13:23] VITALS: PULSE 82
== END 2019-04-17 11:49 | disposition home or self-care (01) | DRG 194 ==
LOC: JD.ED 14:35 → JD.MS 15:58
PROVIDERS: ADMIT Family Medicine; ATTEND Family Medicine
DX: J10.1 Influenza due to other identified influenza virus with other respiratory manifestations (principal); J09.X2 Influenza due to identified novel influenza A virus with other respiratory manifestations; J44.9 Chronic obstructive pulmonary disease, unspecified; E87.2 Acidosis; E88.89 Other specified metabolic disorders; J45.901 Unspecified asthma with (acute) exacerbation; J44.1 Chronic obstructive pulmonary disease with (acute) exacerbation; J45.909 Unspecified asthma, uncomplicated; Z87.01 Personal history of pneumonia (recurrent); R09.02 Hypoxemia; E87.6 Hypokalemia; F17.200 Nicotine dependence, unspecified, uncomplicated; E86.1 Hypovolemia; R11.2 Nausea with vomiting, unspecified; R19.7 Diarrhea, unspecified; R63.0 Anorexia; H54.7 Unspecified visual loss; Z90.49 Acquired absence of other specified parts of digestive tract; Z90.710 Acquired absence of both cervix and uterus; Z99.81 Dependence on supplemental oxygen; Z87.891 Personal history of nicotine dependence; Z79.51 Long term (current) use of inhaled steroids; Z79.899 Other long term (current) drug therapy
CPT/HCPCS: 36415; 80053; 82009; 83605; 83880; 85025; 86140; 93005; A9270 ×2; J1170; J1885; J2405; J7042; 81001; 83735; 94640; 94760; 94761; 96374; 96375; 99285-25; J1650; J2920; J3480; J7620-GY